=== PATIENT | male | born 1970 | race Caucasian/White ===

== ENCOUNTER 2018-06-23 18:37 | Inpatient (IN) ==
[2018-06-23] MEDS ORDERED: ASPIRIN CHEW 324 MG PO STA (18:56)
[2018-06-23] MEDS ORDERED: SODIUM CHLORIDE 0.9% 500 ML IV SCH (19:00)
[2018-06-23 19:06] LABS: Basophils # (auto) 0.03 K/uL (0-0.2); Basophils % (auto) 0.4 %; Eosinophils # (auto) 0.13 K/uL (0-0.5); Eosinophils % (auto) 1.8 %; Hematocrit (blood only) 46.1 % (42-52); Hemoglobin 16.6 g/dL (14.0-18.0); Immature Granulocytes # (auto) 0.01 K/uL (0.00-0.02); Immature Granulocytes % (auto) 0.1 %; Lymphocytes % (auto) 24.1 %; Mean Corpuscular Volume 91.5 fL (80-100); Mean Platelet Volume 10.7 fL (7.4-10.4); Monocytes # (auto) 0.69 K/uL (0.11-0.59); Monocytes % (auto) 9.8 %; Neutrophils % (auto) 63.8 %; Platelet Count 233 K/uL (130-400); RDW Coefficient of Variation 12.4 % (11.5-14.5); RDW Standard Deviation 41.3 fL (36.4-46.3); Red Blood Count 5.04 M/uL (4.7-6.1); White Blood Count 7.06 K/uL (4.8-10.8)
--- NOTE | 2018-06-23 19:13 | Emergency Department Note ---
Entered by Lucila Hoffman acting as a scribe for History of Present Illness General Chief complaint: Neuro Symptoms/Deficit Stated complaint: METAL TASTE, LEFT ARM NUMB, SOB Time Seen by Provider: 06/23/18 18:43 Source: patient Mode of arrival: ambulatory Limitations: no limitations History of Present Illness Provider complaint: shortness of breath Onset (ago): hour(s) (4.5) Location: chest Pain Consistency: + other (episode) Quality: + other (non exertional) Relieved By: + other (water) Associated symptoms: + chest pain, + diaphoresis, + nausea/vomiting and + other (left arm numbness, metal taste in mouth, palpitations) Treatments prior to arrival: other (fluids) The patient is a 48 year old male that presents to the ER with complaints of episodes of shortness of breath that began about 4.5 hours ago. The patient states that the first episode occurred around 1400 today but denies doing anything exertional at the time. He notes his heart was racing during this episode and that he was nauseous and sweating. He states that during this episode, he felt some chest tightness which he notes felt similar to indigestion. He reports that he then proceeded to drink a bottle of water, which he states did alleviate his symptoms. He notes that he then returned to his tractor but notes that shortly after, his symptoms returned, as well as some left arm numbness. He also reports that he currently does have a metal taste in his mouth. He denies any history of lung disease but states he does have a history of sarcoidosis. He denies personal or family history of heart disease as well as blood clots. He notes he has a history of hypertension but not hyp erlipidemia or diabetes. He denies any daily aspirin use. Home Medications Home Medications Medication Instructions Recorded Confirmed Type amlodipine 10 mg PO DAILY 06/23/18 06/23/18 History hydrochlorothiazide 25 mg PO DAILY 06/23/18 06/23/18 History lisinopril 40 mg PO DAILY 06/23/18 06/23/18 History Allergies Allergy/AdvReac Type Severity Reaction Status Date / Time No Known Allergies Allergy Unverified 06/23/18 21:38 Past Med/Surg History Medical History Sarcoidosis of lung Hypertension Social History marital status: Current Living Situation: Spouse Feels Safe at Home: Yes Smoking Status: Never smoker Review of Systems See HPI for pertinent positives & negatives. and A total of 10 systems reviewed and were otherwise negative Physical Exam Vital Signs Vital Signs - 24 hr 06/23/18 18:39 06/23/18 18:49 06/23/18 19:00 Temperature 36.4 C L Temperature Source Oral Sepsis Recent Fever Within 48 Hours No Sepsis Action Taken by Nursing No Action Required Pulse Rate 87 97 H 99 H Pulse Rate [Left Finger] Pulse Rate from SpO2 Sensor Pulse Rhythm [Left Finger] Pulse Strength [Left Finger] Respiratory Rate 20 23 26 H Respiratory Effort / Characteristics Respiratory Depth Respiratory Pattern Blood Pressure 108/75 Blood Pressure [Right Arm] Blood Pressure Mean 86 Blood Pressure Mean [Right Arm] Blood Pressure Position Sitting Pulse Oximetry 95 Oxygen Delivery Method Room Air 06/23/18 19:30 06/23/18 20:00 06/23/18 20:30 Temperature Temperature Source Sepsis Recent Fever Within 48 Hours Sepsis Action Taken by Nursing Pulse Rate 92 H 88 84 Pulse Rate [Left Finger] Pulse Rate from SpO2 Sensor Pulse Rhythm [Left Finger] Pulse Strength [Left Finger] Respiratory Rate 33 H 14 30 H Respiratory Effort / Characteristics Respiratory Depth Respiratory Pattern Blood Pressure Blood Pressure [Right Arm] Blood Pressure Mean Blood Pressure Mean [Right Arm] Blood Pressure Position Pulse Oximetry Oxygen Delivery Method 06/23/18 22:38 06/23/18 22:45 Temperature Temperature Source Sepsis Recent Fever Within 48 Hours Sepsis Action Taken by Nursing Pulse Rate Pulse Rate [Left Finger] 94 H 71 Pulse Rate from SpO2 Sensor 77 Pulse Rhythm [Left Finger] Regular Regular Pulse Strength [Left Finger] Normal Normal Respiratory Rate 22 18 Respiratory Effort / Characteristics Non-Labored Spontaneous Non-Labored Spontaneous Respiratory Depth Normal Normal Respiratory Pattern Regular Regular Blood Pressure 116/79 Blood Pressure [Right Arm] 116/79 116/79 Blood Pressure Mean 91 Blood Pressure Mean [Right Arm] 91 91 Blood Pressure Position Pulse Oximetry 95 97 Oxygen Delivery Method Room Air Room Air GENERAL: Patient is in no acute distress. HEENT: No acute trauma, normocephalic atraumatic, mucous membranes moist, no nasal congestion, no scleral icterus. NECK: No stridor, no adenopathy, no meningismus, trachea is midline. LUNGS: Clear to auscultation bilaterally, no wheeze, no rhonchi, breath sounds equal. HEART: Without murmurs gallops or rubs, regular rate and rhythm. ABDOMEN: Soft, nontender, bowel sounds positive, no hernias, no peritonitis. EXTREMITIES: No cyanosis or edema, full range of motion of all the joints without pain or difficulty, no signs for acute trauma. NEUROLOGIC: Oriented x 3, no acute motor or sensory deficits, no focal weakness. SKIN: No rash, no jaundice, no diaphoresis. Course 1844: The patient was evaluated in room A12B, and a complete history and physical examination were performed. 2120: I discussed the patient's case with Dr. Patricia Erazoupper [facility] Hospitalist. He will evaluate the patient for further management. Administered Medications Ioversol (Optiray 320 125ml) 95 ml IV ONCE PRN PRN Reason: Interaction Checking Stop: 06/27/18 20:47 Last Admin: 06/23/18 20:49 Dose: 95 ml Documented by: [id number] Discontinued Medications Aspirin (Aspirin) 324 mg PO NOW STA Stop: 06/23/18 18:57 Last Admin: 06/23/18 19:05 Dose: 324 mg Documented by: [id number] Sodium Chloride (Nss) 500 mls @ 999 mls/hr IV .Q31M MIREYA Stop: 06/23/18 19:30 Last Infusion: 06/23/18 19:44 Dose: 0 mls/hr Documented by: [id number] Admin: 06/23/18 19:06 Dose: 999 mls/hr Documented by: [id number] Medical Decision Making Differential Diagnosis Differential diagnosis includes: NJ, dysrhythmia, a-fib, angina, PE, aortic dissection, anemia, dehydration, and electrolyte imbalance. Medical Records Attestation: I reviewed the patient's medical records. Home Medications Current Medication List: was personally reviewed by me Laboratory Data Attestation: I reviewed the patient's lab results. Result diagrams: 06/23/18 18:54 06/23/18 18:54 Lab Results 06/23/18 06/23/18 06/23/18 Range/Units 18:54 18:54 18:54 WBC 7.06 (4.8-10.8) K/uL RBC 5.04 (4.7-6.1) M/uL Hgb 16.6 (14.0-18.0) g/dL Hct 46.1 (42-52) % MCV 91.5 (80-100) fL MCH 32.9 (25-34) pg MCHC 36.0 (32-36) g/dL RDW Std Deviation 41.3 (36.4-46.3) fL RDW Coeff of Claudio 12.4 (11.5-14.5) % Plt Count 233 (130-400) K/uL MPV 10.7 H (7.4-10.4) fL Immature Gran % (Auto) 0.1 % Neut % (Auto) 63.8 % Lymph % (Auto) 24.1 % [place] % (Auto) 9.8 % Eos % (Auto) 1.8 % Baso % (Auto) 0.4 % Immature Gran # (Auto) 0.01 (0.00-0.02) K/uL Neut # (Auto) 4.50 (1.4-6.5) K/uL Lymph # (Auto) 1.70 (1.2-3.4) K/uL [place] # (Auto) 0.69 H (0.11-0.59) K/uL Eos # (Auto) 0.13 (0-0.5) K/uL Baso # (Auto) 0.03 (0-0.2) K/uL PT 10.4 (9.0-12.0) Seconds INR 1.0 (0.9-1.1) APTT 27.0 (21.0-31.0) Seconds PTT Ratio 1.0 D-Dimer 930 H* (0-500) ug/L FEU Sodium 139 (136-145) mmol/L Potassium 3.7 (3.5-5.1) mmol/L Chloride 107 (98-107) mmol/L Carbon Dioxide 25 (21-32) mmol/L Anion Gap 8.0 (3-11) BUN 13 (7-18) mg/dl Creatinine 1.34 (0.6-1.4) mg/dl Est Cr Clr Drug Dosing 93.3 ml/min Est GFR ( Amer) 72.1 Est GFR (Non-Af Amer) 62.2 BUN/Creatinine Ratio 9.7 L (10-20) Glucose 110 H (70-99) mg/dl Calcium 9.5 (8.5-10.1) mg/dl Magnesium 2.3 (1.8-2.4) mg/dl Total Bilirubin 1.0 (0.2-1) mg/dl AST 37 (15-37) U/L ALT 71 (12-78) U/L Alkaline Phosphatase 89 (45-117) U/L Troponin I 0.120 H* (0-0.045) ng/ml NT-Pro-B Natriuret Pep 67 (0-450) pg/ml Total Protein 7.6 (6.4-8.2) gm/dl Albumin 4.0 (3.4-5.0) gm/dl Globulin 3.6 (2.5-4.0) gm/dl Albumin/Globulin Ratio 1.1 (0.9-2) Lipase 74 (73-393) U/L Imaging Data Radiologist's Impression: Radiology results as stated below per my review and the radiologist's interpretation: XR chest 1V portable CLINICAL HISTORY: Atypical chest pain COMPARISON STUDY: 12/09/2012 FINDINGS: The heart is mildly enlarged. There is mild interstitial thickening, similar to the preceding study. There is no lobar consolidation. There are no pleural effusions.[ IMPRESSION: Mild cardiomegaly with mild chronic interstitial thickening. No evidence of lobar consolidation Electronically signed by: Giorgi Márquez M.D. 06/23/2018 7:[address] ANGIOGRAM OF THE CHEST CLINICAL HISTORY: Atypical chest pain. Suspected pulmonary embolism. COMPARISON STUDY: Chest CT performed February 02, 2012 TECHNIQUE: Following the IV administration of 95 mL of Optiray-320, CT angiogram of the thorax was performed from the thoracic inlet to the lung bases utilizing the pulmonary embolus protocol. Images are reviewed in the axial, sagittal, and coronal planes. IV contrast was administered without complication. MIP imaging was performed. A dose lowering technique was utilized adhering to the principles of ALARA. CT DOSE: 704.79 mGy.cm FINDINGS: There is hepatic steatosis. No pathologically enlarged axillary mediastinal or hilar lymph nodes were visualized. The ascending thoracic aorta measures 35 mm. There were no pulmonary artery filling defects to indicate acute pulmonary embolism. No pleural effusions are visualized. There is stable apical scarring. Diffuse groundglass and reticulonodular opacities are slightly progressive when compared the prior study. Underlying chronic interstitial lung disease is suspected. IMPRESSION: 1. No evidence of acute pulmonary embolism 2. Chronic nonspecific interstitial lung disease is slightly progressive when compared the prior January 2012 study Electronically signed by: Giorgi Márquez M.D. 06/23/2018 8:57 PM ECG Data Attestation: I personally reviewed and interpreted this ECG as follows: Indication: SOB/dyspnea Rate (beats per minute): 96 Rhythm: normal sinus Findings: no PVC and no ST elevation Blood Pressure Blood Pressure Findings: Normal blood pressure Blood Pressure Disposition: did not require urgent referral MDM Narrative There is no leukocytosis or concerning anemia. No coagulopathy. No significant electrolyte abnormality, kidney failure or hepatitis. No pancreatitis. EKG showed a sinus rhythm, no acute ischemia. Cardiac enzyme testing x1 was el evated, troponin was 0.12. This elevation is concerning for cardiac injury/strain. D-dimer was elevated. Chest CT did not show PE, there was no evidence for aortic dissection. Chest film did not show pneumonia or pneumothorax. BNP was not elevated making fluid overload less likely. The patient received oral aspirin, he was given IV saline. He has remained pain-free. I talked to the patient about his findings, he does require a hospital stay. I spoke with case management, the on-call hospitalist was consulted. I am concerned he may have suffered a non-ST elevation NJ earlier today. Impression & Plan Precordial chest pain, Shortness of breath, Elevated troponin Discharge Plan Visit Data Chief Complaint: Neuro Symptoms/Deficit Stated Complaint: METAL TASTE, LEFT ARM NUMB, SOB ED Provider: Lewis Lopez Discharge Problem: Precordial chest pain, Shortness of breath, Elevated troponin Patient Disposition: Being Evaluated by Hospitalist Forms Stand Alone Forms: My [facility] Cash Check Card Prescriptions Prescriptions: No Action amlodipine 10 mg tablet 10 mg PO DAILY RF: 0 hydrochlorothiazide 25 mg tablet 25 mg PO DAILY RF: 0 lisinopril 40 mg tablet 40 mg PO DAILY RF: 0 Referrals Referrals: Elijah Bergeron MD [Primary Care Provider] - The scribe's documentation has been prepared under my direction and personally reviewed by me in its entirety. I confirm that the note above accurately reflects all work, treatment, procedures, and medical decision making performed by me.
[2018-06-23 19:17] LABS: Prothrombin Time 10.4 Seconds (9.0-12.0)
--- NOTE | 2018-06-23 19:19 | XRay Report ---
XR chest 1V portable CLINICAL HISTORY: Atypical chest pain COMPARISON STUDY: 12/09/2012 FINDINGS: The heart is mildly enlarged. There is mild interstitial thickening, similar to the precedi ng study. There is no lobar consolidation. There are no pleural effusions.[ IMPRESSION: Mild cardiomegaly with mild chronic interstitial thickening. No evidence of lobar consoli dation Electronically signed by: Giorgi Márquez M.D. 06/23/2018 7:18 PM
[2018-06-23 19:23] LABS: BUN Creatinine Ratio 9.7 (10-20); Calcium 9.5 mg/dl (8.5-10.1); Creatinine Clr Calc Pharmacy 93.3 ml/min; Est GFR (African American) 72.1; Est GFR (Non-African American) 62.2; Magnesium 2.3 mg/dl (1.8-2.4); Potassium 3.7 mmol/L (3.5-5.1)
[2018-06-23 19:33] LABS: Albumin Globulin Ratio 1.1 (0.9-2); Globulin 3.6 gm/dl (2.5-4.0); Total Protein 7.6 gm/dl (6.4-8.2); Troponin I 0.12 ng/ml (0-0.045)
[2018-06-23 20:07] LABS: D Dimer 930 ug/L FEU (0-500)
[2018-06-23] MEDS ORDERED: OPTIRAY 320 125ml IV PRN (20:48)
--- NOTE | 2018-06-23 20:58 | CT Scan Report ---
CT ANGIOGRAM OF THE CHEST CLINICAL HISTORY: Atypical chest pain. Suspected pulmonary embolism. COMPARISON STUDY: Chest CT performed February 02, 2012 TECHNIQUE: Following the IV administration of 95 mL of Optiray-320, CT angiogram of the thorax was pe rformed from the thoracic inlet to the lung bases utilizing the pulmonary embolus protocol. Images ar e reviewed in the axial, sagittal, and coronal planes. IV contrast was administered without complicat ion. MIP imaging was performed. A dose lowering technique was utilized adhering to the principles of ALARA. CT DOSE: 704.79 mGy.cm FINDINGS: There is hepatic steatosis. No pathologically enlarged axillary mediastinal or hilar lymph nodes were visualized. The ascending thoracic aorta measures 35 mm. There were no pulmonary artery filling defects to indicate acute pulmonary embolism. No pleural effusions are visualized. There is stable apical scarring. Diffuse groundglass and reticulonodular opacities are slightly progr essive when compared the prior study. Underlying chronic interstitial lung disease is suspected. IMPRESSION: 1. No evidence of acute pulmonary embolism 2. Chronic nonspecific interstitial lung disease is slightly progressive when compared the prior Alex diallo 2011 study Electronically signed by: Giorgi Márquez M.D. 06/23/2018 8:57 PM
[2018-06-23] MEDS ORDERED: METOPROLOL TARTRATE 25 MG TAB PO SCH (23:45)
--- NOTE | 2018-06-24 00:10 | History & Physical Report ---
Date of Service June 24, 2018 Assessment & Plan (1) ACS (acute coronary syndrome): hypertension, BP on the lower side hyperlipidemia as per records SHARON on CPAP sarcoidosis as per records, slightly progressive interstitial lung disease on chest CT Hyperglycemia lower DM PCU Aspirin, beta-rome, IV heparin; nitro as needed chest pain TTE, Cardiology consult, ACS Check lipid profile Check hemoglobin A1c [place] [facility] [place] RE abnormal CT chest. DVT prophylaxis with IV heparin Full code History of Present Illness Chief Complaint: Chest tightness Primary Care Provider: Elijah Bergeron MD History obtained from patient and records. Medical history significant for hypertension, hyperlipidemia, SHARON on CPAP, chantal coidosis as per records. Recent confinement December 2012 for stool impaction. Today patient noted heart racing sensation followed by chest tightness similar to indigestion accompanied by sweatiness. Transient symptoms which recurred when patient went back on his tractor. No unusual shortness of breath. Symptoms resolved by the time patient arrived at the emergency room. 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 Allergies Allergy/AdvReac Type Severity Reaction Status Date / Time perflutren [From g2One] AdvReac Back Pain Verified 06/24/18 07:37 Home Medications Home Medications Medication Instructions Recorded Confirmed Type amlodipine 10 mg PO DAILY 06/23/18 06/23/18 History hydrochlorothiazide 25 mg PO DAILY 06/23/18 06/23/18 History lisinopril 40 mg PO DAILY 06/23/18 06/23/18 History Past Med/Surg History Medical History Sarcoidosis of lung Hypertension Social History Preferred Language: Wallisian Communication Ability: Effective 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 Beliefs That Will Affect Care: None marital status: Current Living Situation: Spouse Other Information That Helps Us Care for You: No Feels Safe at Home: Yes Safety Concerns: Feels Safe At This Time Smoking Status: Never smoker Hx Alcohol Use: Yes Alcohol type: beer Hx Substance Use: No Review of Systems Review of Systems: As per HPI, all 10 systems reviewed, all other ROS negative Physical Exam Physical Exam: GENERAL: Comfortable, slightly anxious, obese no respiratory distress SKIN: Normal color, warm HEENT: Bespectacled, pink palpebral conjunctivae, no ptosis, dry buccal mucosa NECK : Supple, short neck, no tenderness CHEST : CTA, no tenderness HEART : RRR, no obvious murmurs ABDOMEN: Some distention, nontender EXTREMITIES : No LE swelling/tenderness, no other conspicuous deformities noted NEUROLOGIC : Coherent, no facial asymmetry, no other gross focality Results & Data Vital Signs (Past 12 Hours) Vital Signs Temp Pulse Pulse Resp BP BP Pulse Ox 06/23/18 22:45 71 18 116/79 97 06/23/18 22:38 94 H 22 116/79 116/79 95 06/23/18 20:30 84 30 H 06/23/18 20:00 88 14 06/23/18 19:30 92 H 33 H 06/23/18 19:00 99 H 26 H 06/23/18 18:49 97 H 23 06/23/18 18:39 36.4 C L 87 20 108/75 95 Laboratory Results Laboratory Results WBC 7.06 K/uL (4.8-10.8) 06/23/18 18:54 RBC 5.04 M/uL (4.7-6.1) 06/23/18 18:54 Hgb 16.6 g/dL (14.0-18.0) 06/23/18 18:54 Hct 46.1 % (42-52) 06/23/18 18:54 MCV 91.5 fL (80-100) 06/23/18 18:54 MCH 32.9 pg (25-34) 06/23/18 18:54 MCHC 36.0 g/dL (32-36) 06/23/18 18:54 RDW Std Deviation 41.3 fL (36.4-46.3) 06/23/18 18:54 RDW Coeff of Claudio 12.4 % (11.5-14.5) 06/23/18 18:54 Plt Count 233 K/uL (130-400) 06/23/18 18:54 MPV 10.7 fL (7.4-10.4) H 06/23/18 18:54 Immature Gran % (Auto) 0.1 % 06/23/18 18:54 Neut % (Auto) 63.8 % 06/23/18 18:54 Lymph % (Auto) 24.1 % 06/23/18 18:54 [place] % (Auto) 9.8 % 06/23/18 18:54 Eos % (Auto) 1.8 % 06/23/18 18:54 Baso % (Auto) 0.4 % 06/23/18 18:54 Immature Gran # (Auto) 0.01 K/uL (0.00-0.02) 06/23/18 18:54 Neut # (Auto) 4.50 K/uL (1.4-6.5) 06/23/18 18:54 Lymph # (Auto) 1.70 K/uL (1.2-3.4) 06/23/18 18:54 [place] # (Auto) 0.69 K/uL (0.11-0.59) H 06/23/18 18:54 Eos # (Auto) 0.13 K/uL (0-0.5) 06/23/18 18:54 Baso # (Auto) 0.03 K/uL (0-0.2) 06/23/18 18:54 PT 10.4 Seconds (9.0-12.0) 06/23/18 18:54 INR 1.0 (0.9-1.1) 06/23/18 18:54 APTT 27.0 Seconds (21.0-31.0) 06/23/18 18:54 PTT Ratio 1.0 06/23/18 18:54 D-Dimer 930 ug/L FEU (0-500) H* 06/23/18 18:54 Sodium 139 mmol/L (136-145) 06/23/18 18:54 Potassium 3.7 mmol/L (3.5-5.1) 06/23/18 18:54 Chloride 107 mmol/L (98-107) 06/23/18 18:54 Carbon Dioxide 25 mmol/L (21-32) 06/23/18 18:54 Anion Gap 8.0 (3-11) 06/23/18 18:54 BUN 13 mg/dl (7-18) 06/23/18 18:54 Creatinine 1.34 mg/dl (0.6-1.4) 06/23/18 18:54 Est Cr Clr Drug Dosing 93.3 ml/min 06/23/18 18:54 Est GFR ( Amer) 72.1 06/23/18 18:54 Est GFR (Non-Af Amer) 62.2 06/23/18 18:54 BUN/Creatinine Ratio 9.7 (10-20) L 06/23/18 18:54 Glucose 110 mg/dl (70-99) H 06/23/18 18:54 Calcium 9.5 mg/dl (8.5-10.1) 06/23/18 18:54 Magnesium 2.3 mg/dl (1.8-2.4) 06/23/18 18:54 Total Bilirubin 1.0 mg/dl (0.2-1) 06/23/18 18:54 AST 37 U/L (15-37) 06/23/18 18:54 ALT 71 U/L (12-78) 06/23/18 18:54 Alkaline Phosphatase 89 U/L (45-117) 06/23/18 18:54 Troponin I 0.120 ng/ml (0-0.045) H* 06/23/18 18:54 NT-Pro-B Natriuret Pep 67 pg/ml (0-450) 06/23/18 18:54 Total Protein 7.6 gm/dl (6.4-8.2) 06/23/18 18:54 Albumin 4.0 gm/dl (3.4-5.0) 06/23/18 18:54 Globulin 3.6 gm/dl (2.5-4.0) 06/23/18 18:54 Albumin/Globulin Ratio 1.1 (0.9-2) 06/23/18 18:54 Lipase 74 U/L (73-393) 06/23/18 18:54 Diagnostic Findings CTA: 1. No evidence of acute pulmonary embolism 2. Chronic nonspecific interstitial lung disease is slightly progressive when compared the prior January 2012 study EKG as per my interpretation rate 95, NSR, no ischemia
[2018-06-24] MEDS ORDERED: Heparin Adult STANDARD Wt-Based Dextrose 5% 25,000 units/500 mL IV SCH (00:30)
[2018-06-24] MEDS: Heparin IV Standard *NO* Bolus IV SCH ×2 (01:13→02:09)
[2018-06-24] MEDS ORDERED: NITROGLYCERIN SL 0.4 MG/TAB TAB SL PRN (01:36)
[2018-06-24] MEDS ORDERED: TRAMADOL HCL 50 MG TABLET PO PRN (01:36)
[2018-06-24] MEDS ORDERED: ACETAMINOPHEN 325 MG TAB PO PRN (01:36)
[2018-06-24] MEDS ORDERED: PROMETHAZINE HCL 12.5 MG in SODIUM CHLORIDE 0.9% 50 ML IV PRN (01:36)
[2018-06-24] MEDS ORDERED: MoRPHine SULFATE 4 MG/ML 1 ML CARP\\VIAL IV PRN (01:36)
[2018-06-24] MEDS: NSS + 20MEQ KCL 20 MEQ/1,000 ML BAG IV SCH ×2 (02:21→18:41)
[2018-06-24 04:53] LABS: Basophils # (auto) 0.03 K/uL (0-0.2); Basophils % (auto) 0.7 %; Eosinophils # (auto) 0.26 K/uL (0-0.5); Eosinophils % (auto) 5.7 %; Hematocrit (blood only) 42.4 % (42-52); Hemoglobin 15.3 g/dL (14.0-18.0); Immature Granulocytes # (auto) 0.01 K/uL (0.00-0.02); Immature Granulocytes % (auto) 0.2 %; Lymphocytes # (auto) 1.72 K/uL (1.2-3.4); Lymphocytes % (auto) 37.8 %; Mean Corpuscular Hgb Conc 36.1 g/dL (32-36); Mean Corpuscular Volume 91.6 fL (80-100); Mean Platelet Volume 10.3 fL (7.4-10.4); Monocytes # (auto) 0.47 K/uL (0.11-0.59); Monocytes % (auto) 10.3 %; Neutrophils # (auto) 2.06 K/uL (1.4-6.5); Neutrophils % (auto) 45.3 %; Platelet Count 178 K/uL (130-400); RDW Coefficient of Variation 12.5 % (11.5-14.5); RDW Standard Deviation 41.9 fL (36.4-46.3); Red Blood Count 4.63 M/uL (4.7-6.1); White Blood Count 4.55 K/uL (4.8-10.8)
[2018-06-24 05:27] LABS: Calcium 8.3 mg/dl (8.5-10.1); Creatinine Clr Calc Pharmacy 139.2 ml/min; Est GFR (African American) 116.6; Est GFR (Non-African American) 100.6; Potassium 3.4 mmol/L (3.5-5.1); Troponin I 1.28 ng/ml (0-0.045)
[2018-06-24] MEDS ORDERED: CALCIUM GLUCONATE 10% 1,000 MG in SODIUM CHLORIDE 0.9% 50 ML IV STA (05:43)
[2018-06-24 06:33] LABS: Estimated Average Glucose 103 mg/dl; Hemoglobin A1C 5.2 % (4.5-5.6)
[2018-06-24] MEDS: METOPROLOL TARTRATE 25 MG TAB PO SCH ×2 (07:30→20:11)
[2018-06-24] MEDS: ASPIRIN 81 MG ECTAB PO SCH (07:30)
[2018-06-24 08:06] LABS: Partial Thromboplastin Ratio 1.7; Partial Thromboplastin Time 44.9 Seconds (21.0-31.0)
[2018-06-24] MEDS ORDERED: HEPARIN IV BOLUS 4,000 UNITS in SYRINGE 0 ML IV ONE (08:45)
[2018-06-24] MEDS ORDERED: POTASSIUM CHLORIDE 10 MEQ TABCR PO STA (09:26)
[2018-06-24] MEDS: DEXTROSE 5% IV SCH ×2 (09:49→09:50)
[2018-06-24] MEDS: POTASSIUM ACETATE IV SCH ×2 (09:49→09:50)
[2018-06-24] MEDS ORDERED: SODIUM CHLORIDE 0.9% 1000ML 1,000 ML IV SCH ×2 (11:30→13:30)
--- NOTE | 2018-06-24 12:20 | Pre Anesthesia Assessment ---
Date of Service June 24, 2018 Pre Sedation Assessment Vital Signs Temp Pulse Pulse Resp BP BP Pulse Ox 06/24/18 12:00 36.9 C 79 18 134/89 95 06/24/18 08:00 69 06/24/18 07:04 36.5 C 84 16 167/90 H 96 06/24/18 04:00 36.5 C 99 H 16 122/81 96 06/24/18 01:20 36.5 C 69 18 133/84 96 06/23/18 22:45 71 18 116/79 97 06/23/18 22:38 94 H 22 116/79 116/79 95 06/23/18 20:30 84 30 H 06/23/18 20:00 88 14 06/23/18 19:30 92 H 33 H 06/23/18 19:00 99 H 26 H 06/23/18 18:49 97 H 23 06/23/18 18:39 36.4 C L 87 20 108/75 95 Cardiovascular RRR, no murmur, no edema Respiratory normal respiratory effort, lungs clear to auscultation Pre-Sedation Airway Assessment Smoking Status: Never smoker Hx Sleep Apnea: Yes Short, Thick Neck: Yes Mallampati Class: III NPO Status Date of Last Intake of Fluids: 06/23/18 Last Oral Intake of Fluids Comment: Sips of fluid with medications this morning Procedure Planning Contraindications for Sedation: none Current Medications Reviewed: Yes Notes The planned sedation has been discussed with the patient. Informed Consent was obtained. I have identified the patient, determined the appropriateness of sedation and have assessed the patient immediately prior to the procedure. All medicine(s) and interventions are by my order.
--- NOTE | 2018-06-24 12:22 | Cardiology Consultation ---
Date of Consultation June 24, 2018 Assessment & Plan (1) ACS (acute coronary syndrome): Patient has concerning presentation with sudden onset acute dyspnea at rest and with minimal exertion associated diaphoresis chest pressure. Troponins are mildly elevated echocardiogram reflects mild hypokinesis of the inferior wall. Symptoms are suspicious for acute coronary syndrome patient does have underlying history of sarcoidosis and cardiac involvement not completely excluded Plan: Patient is appropriately treated with beta-rome, aspirin, and IV heparin. Currently asymptomatic since admission Will refer for diagnostic cardiac catheterization today procedure and risks have been explained in detail the patient risk of myocardial infarction stroke bleeding infection dye reaction renal vascular embolic injury discussed as well as additional risks of coronary intervention if indicated. Patient agreeable plan further recommendations pending the results (2) Shortness of breath: (3) Elevated troponin: (4) Sarcoidosis of lung: (5) Hypertension: History of Present Illness Reason for Consultation: ACS Requesting Physician: Dr. Goodrich Attending Physician: Hardik Goodrich MD History of Present Illness Patient is a 48-year-old male who is underlying medical history is notable for obstructive sleep apnea, hypertension, pulmonary sarcoidosis diagnosed 2012 who presents with sudden admission noting having developed sudden onset acute dyspnea with diaphoresis and chest pressure yesterday at low level of exertion with serial recurrences with one episode with minimal exertion. Due to concerns regarding symptoms complaints he presented to the emergency room for further evaluation.. Initial EKG reveals sinus rhythm with incomplete right bundle branch block but with no acute ST segment changes. Troponins are serially elevated peak 1.2. Echocardiogram on initial review reveals hypokinesis of the inferior wall Patient denies prior history of myocardial infarction angina or congestive heart failure notes no history of valvular heart disease. Notes no history of TIA or stroke. 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 Notes no acute weight loss or gain notes no unexplained fevers or infections. Notes no bleeding difficulties no hematochezia dysuria hematuria. Appetite and weight is stable. Wears his CPAP faithfully. Has not required recent treatment for underlying history of sarcoidosis no respiratory decline Allergies Allergy/AdvReac Type Severity Reaction Status Date / Time perflutren [From [facility]] AdvReac Back Pain Verified 06/24/18 07:37 Home Medications Home Medications Medication Instructions Recorded Confirmed Type amlodipine 10 mg PO DAILY 06/23/18 06/23/18 History hydrochlorothiazide 25 mg PO DAILY 06/23/18 06/23/18 History lisinopril 40 mg PO DAILY 06/23/18 06/23/18 History Patient History Medical History Sarcoidosis of lung Hypertension Social History Preferred Language: Tunisian Communication Ability: Effective Business Control 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 Required: No Beliefs That Will Affect Care: None marital status: Current Living Situation: Spouse Other Information That Helps Us Care for You: No Feels Safe at Home: Yes Safety Concerns: Feels Safe At This Time Smoking Status: Never smoker Hx Alcohol Use: Yes Alcohol type: beer Hx Substance Use: No Review of Systems Review of Systems: All systems reviewed & are unremarkable except as noted in HPI & below Physical Exam Constitutional: WD/WN, vitals as above + obese Eyes: PERRL, conjunctivae normal, anicteric sclerae ENMT: external ear and nose normal, oropharynx normal Neck: trachea midline, no thyromegaly Respiratory: normal respiratory effort, lungs clear to auscultation Cardiovascular: RRR, no murmur, no edema Gastrointestinal (Abdomen): normal bowel sounds, soft, nontender, no hepatosplenomegaly Musculoskeletal: no cyanosis or clubbing, extremities motor strength 5/5 Skin: no rashes, warm and dry Neurologic: PERRL, EOMI, accommodation nl, no face palsy, no dysarthria Psychiatric: A+Ox3, euthymic affect Results & Data Vital Signs (Past 12 Hours) Vital Signs Temp Pulse Pulse Resp BP Pulse Ox 06/24/18 12:00 36.9 C 79 18 134/89 95 06/24/18 08:00 69 06/24/18 07:04 36.5 C 84 16 167/90 H 96 06/24/18 04:00 36.5 C 99 H 16 122/81 96 06/24/18 01:20 36.5 C 69 18 133/84 96 Laboratory Results Laboratory Results - last 24 hr 06/23/18 06/23/18 06/23/18 18:54 18:54 18:54 WBC 7.06 RBC 5.04 Hgb 16.6 Hct 46.1 MCV 91.5 MCH 32.9 MCHC 36.0 RDW Std Deviation 41.3 RDW Coeff of Claudio 12.4 Plt Count 233 MPV 10.7 H Immature Gran % (Auto) 0.1 Neut % (Auto) 63.8 Lymph % (Auto) 24.1 Dyer % (Auto) 9.8 Eos % (Auto) 1.8 Baso % (Auto) 0.4 Immature Gran # (Auto) 0.01 Neut # (Auto) 4.50 Lymph # (Auto) 1.70 Dyer # (Auto) 0.69 H Eos # (Auto) 0.13 Baso # (Auto) 0.03 PT 10.4 INR 1.0 APTT 27.0 PTT Ratio 1.0 D-Dimer 930 H* Sodium 139 Potassium 3.7 Chloride 107 Carbon Dioxide 25 Anion Gap 8.0 BUN 13 Creatinine 1.34 Est Cr Clr Drug Dosing 93.3 Est GFR ( Amer) 72.1 Est GFR (Non-Af Amer) 62.2 BUN/Creatinine Ratio 9.7 L Glucose 110 H Estimat Average Glucose Hemoglobin A1c Calcium 9.5 Magnesium 2.3 Total Bilirubin 1.0 AST 37 ALT 71 Alkaline Phosphatase 89 Troponin I 0.120 H* NT-Pro-B Natriuret Pep 67 Total Protein 7.6 Albumin 4.0 Globulin 3.6 Albumin/Globulin Ratio 1.1 Triglycerides Cholesterol LDL Cholesterol, Calc VLDL Cholesterol, Calc HDL Cholesterol Cholesterol/HDL Ratio Lipase 74 06/23/18 06/24/18 06/24/18 23:52 04:45 04:45 WBC 4.55 L RBC 4.63 L Hgb 15.3 Hct 42.4 MCV 91.6 MCH 33.0 MCHC 36.1 H RDW Std Deviation 41.9 RDW Coeff of Claudio 12.5 Plt Count 178 MPV 10.3 Immature Gran % (Auto) 0.2 Neut % (Auto) 45.3 Lymph % (Auto) 37.8 Dyer % (Auto) 10.3 Eos % (Auto) 5.7 Baso % (Auto) 0.7 Immature Gran # (Auto) 0.01 Neut # (Auto) 2.06 Lymph # (Auto) 1.72 Dyer # (Auto) 0.47 Eos # (Auto) 0.26 Baso # (Auto) 0.03 PT INR APTT PTT Ratio D-Dimer Sodium Potassium Chloride Carbon Dioxide Anion Gap BUN Creatinine Est Cr Clr Drug Dosing Est GFR ( Amer) Est GFR (Non-Af Amer) BUN/Creatinine Ratio Glucose Estimat Average Glucose 103 Hemoglobin A1c 5.2 Calcium Magnesium Total Bilirubin AST ALT Alkaline Phosphatase Troponin I 0.765 H* NT-Pro-B Natriuret Pep Total Protein Albumin Globulin Albumin/Globulin Ratio Triglycerides Cholesterol LDL Cholesterol, Calc VLDL Cholesterol, Calc HDL Cholesterol Cholesterol/HDL Ratio Lipase 06/24/18 06/24/18 06/24/18 04:45 04:45 07:18 WBC RBC Hgb Hct MCV MCH MCHC RDW Std Deviation RDW Coeff of Claudio Plt Count MPV Immature Gran % (Auto) Neut % (Auto) Lymph % (Auto) Dyer % (Auto) Eos % (Auto) Baso % (Auto) Immature Gran # (Auto) Neut # (Auto) Lymph # (Auto) Dyer # (Auto) Eos # (Auto) Baso # (Auto) PT INR APTT 44.9 H PTT Ratio 1.7 D-Dimer Sodium 141 Potassium 3.4 L Chloride 110 H Carbon Dioxide 29 Anion Gap 2.0 L BUN 12 Creatinine 0.90 D Est Cr Clr Drug Dosing 139.2 Est GFR ( Amer) 116.6 Est GFR (Non-Af Amer) 100.6 BUN/Creatinine Ratio 13.0 Glucose 91 Estimat Average Glucose Hemoglobin A1c Calcium 8.3 L Magnesium Total Bilirubin AST ALT Alkaline Phosphatase Troponin I 1.280 H* NT-Pro-B Natriuret Pep Total Protein Albumin Globulin Albumin/Globulin Ratio Triglycerides 98 Cholesterol 166 LDL Cholesterol, Calc 104 VLDL Cholesterol, Calc 20 HDL Cholesterol 42 Cholesterol/HDL Ratio 4 Lipase 06/24/18 10:42 WBC RBC Hgb Hct MCV MCH MCHC RDW Std Deviation RDW Coeff of Claudio Plt Count MPV Immature Gran % (Auto) Neut % (Auto) Lymph % (Auto) Dyer % (Auto) Eos % (Auto) Baso % (Auto) Immature Gran # (Auto) Neut # (Auto) Lymph # (Auto) Dyer # (Auto) Eos # (Auto) Baso # (Auto) PT INR APTT PTT Ratio D-Dimer Sodium Potassium Chloride Carbon Dioxide Anion Gap BUN Creatinine Est Cr Clr Drug Dosing Est GFR ( Amer) Est GFR (Non-Af Amer) BUN/Creatinine Ratio Glucose Estimat Average Glucose Hemoglobin A1c Calcium Magnesium Total Bilirubin AST ALT Alkaline Phosphatase Troponin I 0.998 H* NT-Pro-B Natriuret Pep Total Protein Albumin Globulin Albumin/Globulin Ratio Triglycerides Cholesterol LDL Cholesterol, Calc VLDL Cholesterol, Calc HDL Cholesterol Cholesterol/HDL Ratio Lipase ECG Additional Comments: 23-JUN-2018 18:49:01 [facility] Normal sinus rhythm Normal ECG When compared with ECG of 09-DEC-2012 12:42, Incomplete right bundle branch block is no longer Present Confirmed by JOSÉ MIGUEL GARZA ([id number]) on 06/24/2018 11:50:10 AM EKG this morning sinus rhythm first-degree AV block mild J-point elevation in inferior lateral leads
[2018-06-24] MEDS ORDERED: NiCARDipine HCL INJ 2.5 MG/ML 10 ML AMP ONE (12:48)
[2018-06-24] MEDS ORDERED: HEPARIN (PORCINE) 1000 UNIT/ML 10 ML (CATH LAB USE ONLY) ONE (12:48)
[2018-06-24] MEDS ORDERED: MIDAZOLAM HCL 1 MG/ML 2ML VIAL ONE (12:48)
[2018-06-24] MEDS ORDERED: fentaNYL citrate 100 MCG/2 ML VIAL ONE (12:48)
[2018-06-24] MEDS ORDERED: NITROGLYCERIN/D5W 100MCG/ML 20ML SYR ONE (12:48)
--- NOTE | 2018-06-24 13:34 | Hospitalist Progress Note ---
Date of Service June 24, 2018 Assessment & Plan (1) ACS (acute coronary syndrome): Supported by shortness of breath, increasing troponin Has been on intravenous heparin, aspirin and beta-rome Appreciate cardiology input and recommendation Going to have cardiac cath today and further recommendations following that procedure Remains free of any symptoms this morning Hypertension, BP on the lower side We will continue current medications with hold parameters Hyperlipidemia as per records SHARON on CPAP Sarcoidosis as per records, slightly progressive interstitial lung disease on chest CT Shortness of breath this seems to be due to cardiac condition Hyperglycemia lower DM Hemoglobin A1c-5.2 DVT prophylaxis with IV heparin Full code Subjective 06/24 The patient was seen and examined in telemetry unit Is a 48-year-old male obese with significant past medical history of hypertension,hyperlipidemia, SHARON on CPAP and sarcoidosis was admitted with shortness of breath and noted to have increased troponin Denies any more pain since admission No shortness of breath at rest Noted to have ACS and will go for cardiac cath this morning and her afternoon Review of Systems Review of Systems: All systems reviewed and are unremarkable except as noted below Respiratory: + dyspnea and + dyspnea on exertion Physical Exam Physical Exam: No apparent distress at rest Constitutional: WD/WN, vitals as above + obese Eyes: PERRL, conjunctivae normal, anicteric sclerae ENMT: external ear and nose normal, oropharynx normal Neck: trachea midline, no thyromegaly Respiratory: normal respiratory effort, lungs clear to auscultation Cardiovascular: Rate/Rhythm: regular rate and regular rhythm Heart Sounds: normal S1 and normal S2 Extremities: + edema Gastrointestinal (Abdomen): normal bowel sounds, soft, nontender, no hepatosplenomegaly Musculoskeletal: no cyanosis or clubbing, extremities motor strength 5/5 Skin: no rashes, warm and dry Neurologic: PERRL, EOMI, accommodation nl, no face palsy, no dysarthria Psychiatric: A+Ox3, euthymic affect Results & Data Vital Signs (Past 12 Hours) Vital Signs Temp Pulse Pulse Resp BP Pulse Ox 06/24/18 12:00 36.9 C 79 18 134/89 95 06/24/18 08:00 69 06/24/18 07:04 36.5 C 84 16 167/90 H 96 06/24/18 04:00 36.5 C 99 H 16 122/81 96 Laboratory Results Short CBC 06/23/18 06/24/18 Range/Units 18:54 04:45 WBC 7.06 4.55 L (4.8-10.8) K/uL Hgb 16.6 15.3 (14.0-18.0) g/dL Hct 46.1 42.4 (42-52) % Plt Count 233 178 (130-400) K/uL BMP 06/23/18 06/24/18 18:54 04:45 Sodium 139 141 Potassium 3.7 3.4 L Chloride 107 110 H Carbon Dioxide 25 29 BUN 13 12 Creatinine 1.34 0.90 D Glucose 110 H 91 Calcium 9.5 8.3 L Cardiac Enzymes 06/23/18 06/23/18 06/24/18 Range/Units 18:54 23:52 04:45 Troponin I 0.120 H* 0.765 H* 1.280 H* (0-0.045) ng/ml 06/24/18 Range/Units 10:42 Troponin I 0.998 H* (0-0.045) ng/ml Liver Function 06/23/18 Range/Units 18:54 Total Bilirubin 1.0 (0.2-1) mg/dl AST 37 (15-37) U/L ALT 71 (12-78) U/L Alkaline Phosphatase 89 (45-117) U/L Albumin 4.0 (3.4-5.0) gm/dl Medications Administered Current Inpatient Medications Acetaminophen (Tylenol) 650 mg PO Q4H PRN PRN Reason: Pain or Fever Stop: 07/24/18 01:35 Aspirin (Ecotrin Ectab) 81 mg PO QAM COUNT INCLUDES THE [facility] Stop: 07/24/18 08:59 Last Admin: 06/24/18 07:30 Dose: 81 mg Documented by: Heparin Sodium/Dextrose (Heparin Sodium/Dextrose) 25,000 units in 500 mls @ 0 mls/hr IV .Q0M COUNT INCLUDES THE [facility]; Protocol Stop: 07/24/18 00:29 Last Titration: 06/24/18 12:43 Dose: 0 units/hr, 0 mls/hr Documented by: Potassium Chloride/Sodium Chloride (Normal Saline W/20 Meq Kcl) 20 meq in 1,000 mls @ 50 mls/hr IV .Q20H COUNT INCLUDES THE [facility] Stop: 07/24/18 01:59 Last Infusion: 06/24/18 12:24 Dose: Infused Documented by: Promethazine HCl 12.5 mg/ (Sodium Chloride) 50.5 mls @ 202 mls/hr IV Q6H PRN PRN Reason: Nausea And Vomiting Stop: 07/24/18 01:35 Sodium Chloride (Nss 1000ml) 1,000 mls @ 136 mls/hr IV .Q7H22M COUNT INCLUDES THE [facility] Stop: 07/24/18 11:29 Last Admin: 06/24/18 12:24 Dose: 136 mls/hr Documented by: Metoprolol Tartrate (Lopressor) 12.5 mg PO BID COUNT INCLUDES THE [facility] Stop: 07/24/18 06:14 Last Admin: 06/24/18 07:30 Dose: 12.5 mg Documented by: Morphine Sulfate (Morphine Sulfate) 4 mg IV Q4H PRN PRN Reason: Pain Stop: 07/08/18 01:35 Nitroglycerin (Nitrostat) 0.4 mg SL UD PRN PRN Reason: Chest Pain Stop: 07/24/18 01:35 Tramadol HCl (Ultram) 25 mg PO Q4H PRN PRN Reason: Pain Stop: 07/24/18 01:35
--- NOTE | 2018-06-24 13:45 | Cardiac Catheterization ---
Cardiac Cath Procedure Full Procedure Date June 24, 2018 Pre-Procedure Diagnosis Pre-Procedure Diagnosis: Acute Coronary Syndrome AUC Score AUC Score: 8 Post-Procedure Diagnosis Post-Procedure Diagnosis: Normal Coronary Arteries Procedure(s) Performed Procedure(s) Performed: Coronary Angiography, Left Heart Cath and LV Angiography Bioinformatics Programmer Mauri Mcclelland MD It Desktop Support Specialist(s) Salvatore Fox Estimated Blood Loss Estimated Blood Loss: <15 cc Medication(s) Medication(s): Fentanyl (12.5 mcg IV), Lidocaine 1% (Local infiltration access site), Nicardipine (250 mcg intra-arterial after arterial sheath placed) and Versed (1 mg IV) Summary of Findings Normal right coronary artery dominant system Left main: Long and trifurcating to give rise to the left anterior descending, a trivial ramus intermedius and the left circumflex no disease or calcification left main Left anterior descending: Large caliber type II vessel giving rise to large bifurcating first diagonal branch and a small second diagonal branch. No disease Left circumflex: Large caliber giving rise to 2 marginal branches and a large posterior lateral branch. No disease in the left circumflex Ramus intermedius trivial vessel without disease Right coronary artery: Dominant distribution, large caliber gives rise to a sinoatrial and conus branch shortly after its origin, two small right ventricular branches in its midportion and at the AV groove along posterior descending artery and along the AV groove, two posterior ventricular branches. There is no disease in the right coronary artery LV angiography: EF 55 to 60% subtle inferior hypokinesis, no mitral insufficiency Hemodynamics Rest Ao:: 134/92/111 Final Ao: 146/94/118 LV: 131/7/21 Recommendations Recommendations: Medical Therapy and/or Counseling and Management Recommendatons (Cardiac MRI will be ordered) Specimens Specimens: None Radiation Exposure (mGy) 1690 Contrast (mls) 119 Fluids (cc crystalloids) Fluids (cc crystalloids): 70 Anesthesia Start time: 1258, stop time: 1315 Procedural Complication(s) None Disposition PCU ACC Data: Web Services Manager Cardiac Status 48-year-old male with history of pulmonary sarcoidosis, hypertension who developed symptoms with low-level exertion and at rest of chest heaviness and diaphoresis. Troponins elevated Echocardiogram subtle hypokinesis inferior wall. No congestive heart failure CAD Presenation: Unstable angina Anginal Classification: CCS III Heart Failure: No Cardiogenic Shock within 24 Hours: No Cardiac Arrest within 24 Hours: No Imaging Studies Past 6 Months: Yes Stress Studies Past 6 Months: No Standard Exercise Test: No Stress Echocardiogram: No Stress Testing w/SPECT MPI: No Cardiac CTA: No Coronary Anatomy Dominant: Right Left Main (% Stenosis): Normal LAD (% Stenosis): Normal D1 (% Stenosis): Normal D2 (% Stenosis): Normal Circumflex (% Stenosis): Normal OM1 (% Stenosis): Normal OM2 (% Stenosis): Normal L PL1 (% Stenosis): Normal RCA (% Stenosis): Normal R PDA (% Stenosis): Normal R PL1 (% Stenosis): Normal R PL2 (% Stenosis): Normal Ramus (% Stenosis): Normal Left Ventricular Angiography EF (%): 55 Wall Motion: Inferior (Subtle hypokinesis) Mitral Regurgitation: None Diagnostic Physicians Name: Mauri Mcclelland MD Status: Urgent Closure Device Percutaneous Entry Location: Radial Closure Device: Radial Band Recommendations: Medical Therapy and/or Counseling and Management Recommendatons (Cardiac MRI will be ordered)
--- NOTE | 2018-06-24 17:15 | Cardiology Progress Note ---
Date of Service June 24, 2018 Assessment & Plan (1) ACS (acute coronary syndrome): Patient has concerning presentation with sudden onset acute dyspnea at rest and with minimal exertion associated diaphoresis chest pressure. Troponins are mildly elevated echocardiogram reflects mild hypokinesis of the inferior wall. Symptoms are suspicious for acute coronary syndrome patient does have underlying history of sarcoidosis and cardiac involvement not completely excluded Initial diagnostic cardiac catheterization demonstrates no obstructive coronary disease Plan as outlined in HPI above (2) Shortness of breath: (3) Elevated troponin: (4) Sarcoidosis of lung: (5) Hypertension: Subjective Patient seen post cardiac catheterization study demonstrating normal coronaries without obstruction. Tolerated procedure well without difficulties. No telemetry abnormalities Echocardiogram and LV gram suggest subtle inferior basilar hypokinesis preserved LV systolic function EKG sinus rhythm with first-degree AV block Given past history of sarcoidosis do feel further investigation of patient's current symptoms is warranted. We will arrange for a 7-day ZIO patch to be placed post hospital discharge Cardiac MRI to assess for presence of cardiac sarcoid involvement Follow-up with [facility] cardiology 1 months time. Would continue metoprolol in addition to prior antihypertensives Physical Exam Constitutional: WD/WN, vitals as above + obese Eyes: PERRL, conjunctivae normal, anicteric sclerae ENMT: Mallampati Class: III Neck: trachea midline, no thyromegaly Respiratory: normal respiratory effort, lungs clear to auscultation Cardiovascular: RRR, no murmur, no edema Right radial pulse healing well Gastrointestinal (Abdomen): normal bowel sounds, soft, nontender, no hepatosplenomegaly Musculoskeletal: no cyanosis or clubbing, extremities motor strength 5/5 Skin: no rashes, warm and dry Neurologic: PERRL, EOMI, accommodation nl, no face palsy, no dysarthria Psychiatric: A+Ox3, euthymic affect Results & Data Vital Signs (Past 12 Hours) Vital Signs Temp Pulse Pulse Resp BP BP Pulse Ox 06/24/18 15:56 36.3 C L 81 17 124/78 94 06/24/18 14:44 36.4 C L 79 20 128/84 98 06/24/18 14:08 36.6 C 75 20 132/87 97 06/24/18 13:44 36.6 C 80 20 144/88 H 95 06/24/18 13:29 36.7 C 76 20 136/91 95 06/24/18 12:00 36.9 C 79 18 134/89 95 06/24/18 08:00 69 06/24/18 07:04 36.5 C 84 16 167/90 H 96
[2018-06-24] MEDS ORDERED: POLYETHYLENE (MIRALAX) 17 GM PACK PO PRN (20:27)
[2018-06-24] MEDS: DOCUSATE SODIUM 100 MG CAP PO SCH (23:26)
[2018-06-25] MEDS: METOPROLOL TARTRATE 25 MG TAB PO SCH (07:24)
[2018-06-25] MEDS: DOCUSATE SODIUM 100 MG CAP PO SCH (07:24)
[2018-06-25] MEDS: ASPIRIN 81 MG ECTAB PO SCH (07:24)
[2018-06-25 07:54] LABS: Basophils # (auto) 0.04 K/uL (0-0.2); Eosinophils # (auto) 0.22 K/uL (0-0.5); Eosinophils % (auto) 5.3 %; Hematocrit (blood only) 41.1 % (42-52); Hemoglobin 14.5 g/dL (14.0-18.0); Immature Granulocytes # (auto) 0.01 K/uL (0.00-0.02); Immature Granulocytes % (auto) 0.2 %; Lymphocytes # (auto) 1.17 K/uL (1.2-3.4); Lymphocytes % (auto) 28.3 %; Mean Corpuscular Hgb Conc 35.3 g/dL (32-36); Mean Corpuscular Volume 92.8 fL (80-100); Mean Platelet Volume 10.5 fL (7.4-10.4); Monocytes # (auto) 0.44 K/uL (0.11-0.59); Monocytes % (auto) 10.6 %; Neutrophils # (auto) 2.26 K/uL (1.4-6.5); Neutrophils % (auto) 54.6 %; Platelet Count 169 K/uL (130-400); RDW Coefficient of Variation 12.6 % (11.5-14.5); RDW Standard Deviation 42.5 fL (36.4-46.3); Red Blood Count 4.43 M/uL (4.7-6.1); White Blood Count 4.14 K/uL (4.8-10.8)
[2018-06-25 08:26] LABS: BUN Creatinine Ratio 14.7 (10-20); Calcium 8.7 mg/dl (8.5-10.1); Creatinine Clr Calc Pharmacy 131.9 ml/min; Est GFR (African American) 109.3; Est GFR (Non-African American) 94.3; Magnesium 2.4 mg/dl (1.8-2.4); Potassium 4.4 mmol/L (3.5-5.1)
--- NOTE | 2018-06-25 12:59 | Cardiology Progress Note ---
Date of Service June 25, 2018 Assessment & Plan (1) ACS (acute coronary syndrome): ACS ruled out now symptom free subtle wall motion abnormality is concerning given hx of sarcoidosis cardiac sarcoidosis work up to be completed as an outpatient with cardiac MRI and Zio patch my office will call to arrange ok to d/c to home from cardiac standpoint (2) Shortness of breath: (3) Elevated troponin: (4) Sarcoidosis of lung: recommend re-establishing with pulmonary as outpatient (5) Hypertension: would d/c home on previous outpatient regimen Subjective Pt seen and examined, oob in chair, states that he feels well. Denies cp, sob, palpitations, lightheadedness or dizziness. tele reviewed: sinus rhythm without arrhythmia or significant ectopy. Review of Systems Review of Systems: All systems reviewed & are unremarkable except as noted in HPI & below Physical Exam Physical Exam: Physical Exam: General: Awake, alert and oriented x 3. No acute distress. HEENT: Normocephalic, atraumatic. Pupils equal, round and reactive to light and accommodation. Extraocular muscles are intact. Anicteric sclera. Moist mucous membranes. Neck: No JVD. No bruit. Cardiovascular: Regular. No S-4. Normal S-1 and S-2. No S-3. No murmurs, rubs or gallops. Pulmonary: Clear to auscultation bilaterally. No rales, rhonchi, or wheezing. Abdomen: Bowel sounds x 4, soft. No rebound, guarding or tenderness. No organomegaly. Extremities: No clubbing, cyanosis or edema. +2 pedal pulses bilaterally. Skin: Warm and dry. Results & Data Vital Signs (Past 12 Hours) Vital Signs Temp Pulse Pulse Resp BP Pulse Ox 06/25/18 11:37 36.6 C 84 18 133/81 96 06/25/18 08:00 68 06/25/18 07:40 36.9 C 75 18 137/87 95 06/25/18 03:58 36.8 C 75 18 127/82 97
--- NOTE | 2018-06-25 15:07 | Hospitalist Progress Note ---
Date of Service delayed entry date of service as noted below June 25, 2018 Assessment & Plan (1) ACS (acute coronary syndrome): presented with shortness of breath, increasing troponin given intravenous heparin, aspirin and beta-rome Dietitian Chief consulted echo: EF 50-55%, subtle inferior posterior hypokinesis, Grade 1 Diastolic Dysfunction s/p Cardiac Cath: normal coronary anatomies per Cardiology, subtle wall motion abnormality is concerning given hx of sarcoidosis cardiac sarcoidosis work up to be completed as an outpatient with cardiac MRI and Zio patch Cardiology office to arrange above for patient ff up with Cardiology clinic ff up with PCP Hypertension continue usual Lisinopril, Amlodipine Hyperlipidemia outpatient ff up SHARON on CPAP Sarcoidosis as per records CT chest angio: 1. No evidence of acute pulmonary embolism 2. Chronic nonspecific interstitial lung disease is slightly progressive when compared the prior January 2012 study slightly progressive interstitial lung disease on chest CT -- advised to ff up with Resident In Diagnostic Radiology soon Hyperglycemia Hemoglobin A1c-5.2 ff up as outpatient Dispo d/c home ff up as noted above Subjective ff up for chest pain s/p stress test seen resting in bedside chair comfortable chest pain free denies dyspnea, palpitations, dizziness no problems with ambulation states he feels fine overall states he is ready and would like to be discharged Review of Systems Review of Systems: All systems reviewed & are unremarkable except as noted in HPI & below Physical Exam Physical Exam: General- oriented x 3, not in distress, speaks in sentences with no effort or accessory muscle use Eyes- anicteric Neck- no JVD Lungs- clear breath sounds bilaterally, no rales/wheezes Heart- normal rate, regular rhythm; no murmurs Abdomen- normal bowel sounds, nondistended, soft, nontender Extremities- no pretibial edema, no calf tenderness Neuro- alert, oriented x 3; no gross focal neurologic deficits Skin- warm & dry Results & Data Vital Signs (Past 12 Hours) Vital Signs Temp Pulse Pulse Resp BP Pulse Ox 06/25/18 15:01 36.6 C 84 18 133/81 96 06/25/18 11:37 36.6 C 84 18 133/81 96 06/25/18 08:00 68 06/25/18 07:40 36.9 C 75 18 137/87 95 06/25/18 03:58 36.8 C 75 18 127/82 97 Laboratory Results all noted and reviewed
--- NOTE | 2018-06-29 07:38 | Discharge Summary ---
Date of Service June 29, 2018 Admission HPI Per Admitting Provider History obtained from patient and records. Medical history significant for hypertension, hyperlipidemia, SHARON on CPAP, sarcoidosis as per records. Recent confinement December 2012 for stool impaction. Today patient noted heart racing sensation followed by chest tightness similar to indigestion accompanied by sweatiness. Transient symptoms which recurred when patient went back on his tractor. No unusual shortness of breath. Symptoms resolved by the time patient arrived at the emergency room. 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 Admission Exam Per Admitting Provider Physical Exam: GENERAL: Comfortable, slightly anxious, obese no respiratory distress SKIN: Normal color, warm HEENT: Bespectacled, pink palpebral conjunctivae, no ptosis, dry buccal mucosa NECK : Supple, short neck, no tenderness CHEST : CTA, no tenderness HEART : RRR, no obvious murmurs ABDOMEN: Some distention, nontender EXTREMITIES : No LE swelling/tenderness, no other conspicuous deformities noted NEUROLOGIC : Coherent, no facial asymmetry, no other gross focality Principal Diagnosis CHEST PAIN, ACUTE CORONARY SYNDROME RULED OUT Discharge Exam General- oriented x 3, not in distress, speaks in sentences with no effort or accessory muscle use Eyes- anicteric Neck- no JVD Lungs- clear breath sounds bilaterally, no rales/wheezes Heart- normal rate, regular rhythm; no murmurs Abdomen- normal bowel sounds, nondistended, soft, nontender Extremities- no pretibial edema, no calf tenderness Neuro- alert, oriented x 3; no gross focal neurologic deficits Skin- warm & dry Discharge Data Allergies Allergy/AdvReac Type Severity Reaction Status Date / Time perflutren [From Definity] AdvReac Back Pain Verified 06/24/18 07:37 Consultations 06/23/18 23:14 ED Decision to Admit Stat 06/24/18 01:36 Consult Cardiology Routine Procedures Performed Operation Date: 06/24/18 11:30 Actual Procedures p Cath, Left with Cors and Vent(Right) - Mauri Mcclelland MD s Cineradiography w/Routine Exam - Mauri Mcclelland MD Ordered Studies 06/23/18 20:09 CT angio chest PE protocol Stat There is hepatic steatosis. No pathologically enlarged axillary mediastinal or hilar lymph nodes were visualized. The ascending thoracic aorta measures 35 mm. There were no pulmonary artery filling defects to indicate acute pulmonary embolism. No pleural effusions are visualized. There is stable apical scarring. Diffuse groundglass and reticulonodular opacities are slightly progressive when compared the prior study. Underlying chronic interstitial lung disease is suspected. IMPRESSION: 1. No evidence of acute pulmonary embolism 2. Chronic nonspecific interstitial lung disease is slightly progressive when compared the prior January 2012 study 06/24/18 12:28 CL Cath Imgs for PACS use only Routine Hospital Course (1) ACS (acute coronary syndrome): presented with shortness of breath, increasing troponin given intravenous heparin, aspirin and beta-rome [employer] consulted- Dr. Mcclelland and Dr. Zavala echo: EF 50-55%, subtle inferior posterior hypokinesis, Grade 1 Diastolic Dysfun ction s/p Cardiac Cath: normal coronary anatomies per Cardiology, subtle wall motion abnormality is concerning given hx of sarcoidosis cardiac sarcoidosis work up to be completed as an outpatient with cardiac MRI and Zio patch Cardiology office to arrange above for patient ff up with Cardiology clinic ff up with PCP Hypertension continue usual Lisinopril, Amlodipine Hyperlipidemia outpatient ff up SHARON on CPAP Sarcoidosis as per records CT chest angio: 1. No evidence of acute pulmonary embolism 2. 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 Hyperglycemia Hemoglobin A1c-5.2 ff up as outpatient Dispo d/c home ff up as noted above Total Time Total Time Spent Total Time Spent (In Minutes): 35 minutes Discharge Plan Discharge Items Patient Disposition: Home - Self-Care Reason For Visit: ACS Discharge Diagnosis: CHEST PAIN Discharge Goals: Diagnostic testing Activity: As commented below Activity Comment: NO HEAVY EXERTION UNTIL RE-EVALUATED BY PRIMARY CARE PHYSICIAN Lifting: Wait until after follow-up appointment Exercise/Sports: Wait until after follow-up appointment Driving/Machine Use Comment: NO DRIVING UNTIL RE-EVALUATED BY PRIMARY CARE PHYSICIAN Non-emergency contact: Primary Care Provider Call non-emergency contact if: you have any medication questions, your symptoms worsen, your pain is not controlled, your pain is worsening, your pain is unusual for you, your pain is concerning for you and you have a fever Follow-up/Referrals: Elijah Bergeron MD [Primary Care Provider] - 06/29/18 3:15 pm Diet: Heart Healthy Add Provider Instructions: PLEASE FOLLOW UP WITH 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 RESUME USUAL MEDICATIONS TOMORROW 06/26/18. Prescriptions: Continued amlodipine 10 mg tablet 10 mg PO DAILY RF: 0 hydrochlorothiazide 25 mg tablet 25 mg PO DAILY RF: 0 lisinopril 40 mg tablet 40 mg PO DAILY RF: 0 Stand-Alone Forms: [facility] Discharge Orders: Discharge Order (Routine); Ordered 06/25/18 Ordered By: Shai Cerna Admission Data Admit Date/Time: 06/24/18 00:12 Attending Provider: Shai Cerna Admit Provider: Sanket Gomez Primary Care Provider: Elijah Bergeron. Other Providers: Sanket Gomez ; Spike Zavala ; Frank Jimenez ; Mauri Mcclelland ; Anselmo Sprague ; Esteban Jarquin ; Elijah Ortiz ; Gay José ; Elaine Villarreal ; Hardik Goodrich Service: Telemetry Other Interventions: Discharge Summary Assessment (RN) Last Done: 06/25/18 15:01 DC Date/Time DO NOT enter until pt leaves facility: 06/25/18 15:25
== END 2018-06-25 15:25 | disposition home or self-care (01) | DRG 287 ==
LOC: ED 18:37 → 2S 06-24 00:12 → SUATTDRO 06-24 00:12 → 2S 06-24 01:17